=== PATIENT | female | born 1930 | race Caucasian/White ===

== ENCOUNTER 2017-03-07 18:36 | Inpatient (IN) | payer OTHER, MEDICAID ==
[~2017-03-07] VITALS: Ht 152.4 cm; Wt 52.2 kg
[~2017-03-07 18:36] MED LIST: ARICEPT5 MG PO; FLA500 PO; LEVAQUIN750 MG PO; METOCLOPRAMIDE10 MG PO; MOTRIN800 MG; PRAVACHOL20 MG PO; SYNTHROID0.075 MG PO; ZANTAC 150150 MG; ZOF4 PO
[2017-03-07 20:44] LABS: BASOPHIL % 0.3 % (0-2); PLATELET COUNT 221 x10^3mcL (130-400); RED CELL DISTRIBUTION WIDTH 13.4 % (11.5-14.5)
[2017-03-07 20:50] LABS: CALCIUM 8.9 mg/dL (8.5-10.1); CARBON DIOXIDE 25.5 mmol/L (21-32); CHLORIDE SERUM 102 mmol/L (98-107); GLUCOSE SERUM 90 mg/dL (74-106); POTASSIUM SERUM 3.8 mmol/L (3.5-5.1); SODIUM SERUM 137 mmol/L (136-145)
[2017-03-07 21:02] LABS: ALBUMIN 3.8 g/dL (3.4-5.0); ALKALINE PHOSPHATASE 70 U/L (46-116); ALT/SGPT 20 U/L (14-59); AST/SGOT 15 U/L (15-37); BILIRUBIN TOTAL 0.5 mg/dL (0.20-1.00); CHOLESTEROL 166 mg/dL (<200); HDL CHOLESTEROL 38 mg/dL (40-60); MAGNESIUM 2.4 mg/dL (1.8-2.4); TOTAL PROTEIN, SERUM 7.7 g/dL (6.4-8.2)
[2017-03-07 21:30] LABS: UA SPECIFIC GRAVITY <=1.005 (1.005-1.035); microscopic required? YES; urine erythrocyte 1+ (NEGATIVE)
[2017-03-07] MEDS ORDERED: GLUCOSAMINE-CH1 EA25 PO (23:34)
[2017-03-07] MEDS ORDERED: LEVOXYL0.088 MG PO (23:34)
[2017-03-07] MEDS ORDERED: ECOTRIN81 M2 PO (23:35)
[2017-03-07] MEDS ORDERED: DONEPEZIL HYDROC5 M2 PO (23:35)
[2017-03-07] MEDS ORDERED: ADVIL200 M1 PO (23:35)
[2017-03-07] MEDS ORDERED: TYLENOL WITH CO1 TA2 PO (23:37)
[2017-03-07] MEDS ORDERED: FULL CIRCLE BIOT5 MG PO (23:37)
[2017-03-07] MEDS ORDERED: BETIMOL5 M1 OU (23:37)
[2017-03-07] MEDS ORDERED: APAP500 MG (23:38)
[2017-03-08] VITALS (7 sets, daily range): BP systolic 94–141; BP diastolic 41–64
[2017-03-08 01:02] LABS: T3 TOTAL 0.94 ng/mL
[2017-03-08 01:07] LABS: PHOSPHOROUS 3.5 mg/dL (2.5-4.9)
[2017-03-08 01:22] LABS: FREE T4 1.69 ng/dL (0.76-1.46); T4(THYROXINE) 12.9 ug/dL (4.7-13.3)
[2017-03-08 07:23] LABS: BASOPHIL % 0.4 % (0-2); PLATELET COUNT 185 x10^3mcL (130-400); RED CELL DISTRIBUTION WIDTH 13.4 % (11.5-14.5)
[2017-03-08 07:58] LABS: CALCIUM 8.3 mg/dL (8.5-10.1); CARBON DIOXIDE 23.4 mmol/L (21-32); CHLORIDE SERUM 109 mmol/L (98-107); CREATININE SERUM 0.8 mg/dL (0.6-1.0); GLUCOSE SERUM 81 mg/dL (74-106); POTASSIUM SERUM 3.7 mmol/L (3.5-5.1); SODIUM SERUM 141 mmol/L (136-145)
[2017-03-09 06:01] LABS: BASOPHIL % 0.4 % (0-2); PLATELET COUNT 175 x10^3mcL (130-400); RED CELL DISTRIBUTION WIDTH 13.5 % (11.5-14.5)
[2017-03-09 06:18] LABS: AMYLASE 115 U/L (25-115); CALCIUM 8.2 mg/dL (8.5-10.1); CARBON DIOXIDE 25.3 mmol/L (21-32); CHLORIDE SERUM 111 mmol/L (98-107); CREATININE SERUM 0.9 mg/dL (0.6-1.0); GLUCOSE SERUM 90 mg/dL (74-106); LIPASE 613 IU/L (73-393); MAGNESIUM 2.1 mg/dL (1.8-2.4); POTASSIUM SERUM 4.4 mmol/L (3.5-5.1); SODIUM SERUM 142 mmol/L (136-145)
[2017-03-09 06:50] VITALS: BP 125/46
[2017-03-09 10:21] VITALS: BP 136/69
[2017-03-09] MEDS ORDERED: LEVOFLOXACIN250 MG PO (11:41)
[2017-03-09] MEDS ORDERED: LAC PO (11:42)
== END 2017-03-09 13:28 | disposition home or self-care (01) | DRG 689 ==
LOC: ED 18:36 → DU 23:28
PROVIDERS: Emergency Medicine; Family Medicine; ADMIT Student in an Organized Health Care Education/Training Program
DX: N39.0 Urinary tract infection, site not specified (principal); G93.41 Metabolic encephalopathy; N17.0 Acute kidney failure with tubular necrosis; K85.90 Acute pancreatitis without necrosis or infection, unspecified; R31.9 Hematuria, unspecified; E03.9 Hypothyroidism, unspecified; H40.9 Unspecified glaucoma; F03.90 Unspecified dementia, unspecified severity, without behavioral disturbance, psychotic disturbance, mood disturbance, and anxiety; Z68.22 Body mass index [BMI] 22.0-22.9, adult
CPT/HCPCS: 83880; 84439; J0696; J7030; Q0092

== ENCOUNTER 2017-09-15 19:14 | Emergency (ER) | payer OTHER, MEDICAID ==
[~2017-09-15] VITALS: Ht 149.9 cm; Wt 55.8 kg
[~2017-09-15 19:14] MED LIST changes: +ADVIL200 M1 PO; +APAP500 MG; +BETIMOL5 M1 OU; +DONEPEZIL HYDROC5 M2 PO; +ECOTRIN81 M2 PO; +FULL CIRCLE BIOT5 MG PO; +GLUCOSAMINE-CH1 EA25 PO; +LAC PO; +LEVOFLOXACIN250 MG PO; +LEVOXYL0.088 MG PO; +TYLENOL WITH CO1 TA2 PO
[2017-09-15 19:26] VITALS: Ht 149.9 cm; Wt 55.8 kg
[2017-09-15 22:55] VITALS: BP 120/73
== END 2017-09-15 22:55 | disposition home or self-care (01) ==
LOC: ED 19:14
DX: S01.01XA Laceration without foreign body of scalp, initial encounter (principal); W22.8XXA Striking against or struck by other objects, initial encounter; Y93.89 Activity, other specified; Y92.89 Other specified places as the place of occurrence of the external cause; Y99.8 Other external cause status
CPT/HCPCS: J2001

== ENCOUNTER 2017-10-04 10:12 | Emergency (ER) | payer OTHER, MEDICAID ==
[~2017-10-04] VITALS: Ht 144.8 cm; Wt 55.1 kg
[2017-10-04 10:29] VITALS: BP 139/71; Ht 144.8 cm; Wt 55.1 kg
== END 2017-10-04 11:25 | disposition home or self-care (01) ==
LOC: ED 10:12
DX: S01.01XD Laceration without foreign body of scalp, subsequent encounter (principal); I10 Essential (primary) hypertension; E78.00 Pure hypercholesterolemia, unspecified; X58.XXXD Exposure to other specified factors, subsequent encounter